=== PATIENT | male | born 1945 | race Caucasian/White ===

== ENCOUNTER 2017-05-17 03:33 | Inpatient (IN) | payer OTHER, MEDICARE ==
[~2017-05-17] VITALS: Ht 180.3 cm; Wt 72.4 kg
[2017-05-17] VITALS (16 sets, daily range): BP systolic 140–164; BP diastolic 65–85; PULSE 71–95; RESP 16–22; TEMP 95.9–98.7; O2SAT 83–97
[~2017-05-17 03:33] MED LIST: ASPI81 PO; CAPS0.022 TOPICAL; COUM5TAB PO; DOCU240C PO; GABA300C3 PO; LISI2.5T55 PO; METO200T3 PO; NITR0.4S SL; OMEP20TA OR; OXYC15TA PO; SIMV10 PO; VENTAER INH
[2017-05-17] MEDS ORDERED: SODIUM CHLORIDE 0.9% FLUSH 10 ML FLUSH IVF PRN (03:45)
[2017-05-17] MEDS: RESP: ALBUTEROL 2.5 MG/IPRATROPIUM 0.5 MG NEB (SCH) INH ×2 (03:45→03:46)
--- NOTE | 2017-05-17 03:48 | PD ---
HPI Chief Complaint: shortness of breath Time Seen by Provider: 03:35 Travel History International Travel<30 days: No Contact w/Intl Traveler<30days: No Traveled to known affect area: No History of Present Illness HPI The patient is a 72-year-old male with COPD who smokes 2 packs of cigars daily. He says he quit 2 days ago. He is been short of breath for about a week. He does not have oxygen at home. He says he has a gradual onset bifrontal headache that comes on and off. [facility] Dr[facility] Quan. 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) GERD: Yes Hypertension: Yes Implanted Vascular Access Dvce: Yes (defibillator) Musculoskeletal: Yes (PINCHED SIATIC NERVE- TAKES DAILY PERCOCET FOR) Psychiatric: Yes Myocardial Infarction: Yes Triglycerides - High: Yes Past Surgical History Cardiac Surgery: Yes (DEFIB 03/2011) Coronary Stent: Yes (X 2) Pacemaker: Yes Social History Alcohol Use: No Tobacco Use: Yes (5 CIGARS/DAY) Substance Use: No Allergies-Medications (Allergen,Severity, Reaction): Coded Allergies: No Known Allergies (Verified , 05/17/17) Reported Meds & Prescriptions Reported Meds & Active Scripts Active Reported Suboxone Sublingual Film (Buprenorphine-Naloxone Sublingual Film) 8-2 Mg Film 1.5 Film SL Unique ID number required: Simvastatin 20 Mg Tab 20 Mg PO DAILY Omeprazole 20 Mg Tab 20 Mg PO DAILY Nitroglycerin SL (Nitroglycerin) 0.4 Mg Subl 0.4 Mg SL DIRECTED PRN ONE TABLET UNDER THE TONGUE NEEDED FOR CHEST PAIN, MAY REPEAT EVERY FIVE MINUTES FOR A TOTAL OF 3 DOSES OR CALL 911 IF NO RELIEF Metoprolol Succinate ER 24 HR (Metoprolol Succinate) 200 Mg Tab 200 Mg PO DAILY Lisinopril 5 Mg Tab 5 Mg PO DAILY Aspirin 81 Mg Chew 81 Mg CHEW DAILY Alfuzosin ER 24 HR 10 Mg Tab 10 Mg PO DAILY Proair Hfa 8.5 GM Inh (Albuterol Sulfate) 90 Mcg/Act Aer 1 Puff INH Q4H PRN 108 mcg/actuation Review of Systems Except as stated in HPI: all other systems reviewed are Neg Physical Exam Narrative GENERAL: The patient is alert, oriented 3 and slight respiratory distress. SKIN: Focused skin assessment warm/dry. HEAD: Atraumatic. Normocephalic. EYES: Pupils equal and round. No scleral icterus. No injection or drainage. ENT: No nasal bleeding or discharge. Mucous membranes pink and moist. NECK: Trachea midline. No JVD. CARDIOVASCULAR: Regular rate and rhythm. No murmur appreciated. RESPIRATORY: No accessory muscle use. Scattered rhonchi and wheezes are heard bilaterally. Breath sounds equal bilaterally. GASTROINTESTINAL: Abdomen soft, non-tender, nondistended. Hepatic and splenic margins not palpable. MUSCULOSKELETAL: No obvious deformities. No clubbing. No cyanosis. No edema. NEUROLOGICAL: Awake and alert. No obvious cranial nerve deficits. Motor grossly within normal limits. Normal speech. PSYCHIATRIC: Appropriate mood and affect; insight and judgment normal. Data Data Last Documented VS Vital Signs Date Time Temp Pulse Resp B/P (MAP) Pulse Ox O2 Delivery O2 Flow Rate FiO2 05/17/17 04:43 75 20 156/83 (107) 91 Nasal Cannula 2.00 05/17/17 03:47 98.1 Orders Orders Complete Blood Count With Diff (05/17/17 03:35) Basic Metabolic Panel (Bmp) (05/17/17 03:35) Iv Access Insert/Monitor (05/17/17 03:35) Electrocardiogram (05/17/17 03:35) Ecg Monitoring (05/17/17 03:35) Oximetry (05/17/17 03:35) Oxygen Administration (05/17/17 03:35) Chest, Pa & Lat (05/17/17 03:35) Sodium Chloride 0.9% Flush (Ns Flush) (05/17/17 03:45) Albuterol-Ipratropium Neb (Duoneb Neb) (05/17/17 03:45) Arterial Blood Gas (Abg) (05/17/17 ) B-Type Natriuretic Peptide (05/17/17 03:39) Levofloxacin 500 Mg Premix Inj (Levaquin (05/17/17 05:15) Methylprednisolone So Succ Inj (Solumedr (05/17/17 06:00) Albuterol-Ipratropium Neb (Duoneb Neb) (05/17/17 08:00) Albuterol-Ipratropium Neb (Duoneb Neb) (05/17/17 05:30) Budeson-Formot 160-4.5 Mg Inh (Symbicort (05/17/17 09:00) Guaifenesin Er (Mucinex Er) (05/17/17 09:00) Admit To Inpatient (05/17/17 ) Vital Signs (Adult) Q4H (05/17/17 05:23) Activity Oob Ad Ramya (05/17/17 05:23) Shuttle Preparation Supervisor / Telemetry .CONTINUOUS (05/17/17 05:23) Intake + Output PRISCILLA.QSHIFT (05/17/17 05:23) Diet Regular Basic (05/17/17 Breakfast) Sodium Chloride 0.9% Flush (Ns Flush) (05/17/17 05:30) Sodium Chloride 0.9% Flush (Ns Flush) (05/17/17 09:00) Ondansetron Inj (Zofran Inj) (05/17/17 05:30) Comprehensive Metabolic Panel (05/18/17 06:00) Complete Blood Count With Diff (05/18/17 06:00) Heparin Inj (Heparin Inj) (05/17/17 09:00) Acetaminophen (Tylenol) (05/17/17 05:30) Acetamin-Hydrocod 325-5 Mg ([place] 5-325 (05/17/17 05:30) Acetamin-Hydrocod 325-10 Mg ([place] 10-32 (05/17/17 05:30) Docusate Sodium-Senna (Christine-Colace) (05/17/17 09:00) Magnesium Hydroxide Liq (Milk Of Magnesi (05/17/17 05:30) Sennosides (Senokot) (05/17/17 05:30) Bisacodyl Supp (Dulcolax Supp) (05/17/17 05:30) Lactulose Liq (Lactulose Liq) (05/17/17 05:30) Inpatient Certification (05/17/17 ) Aspirin Chew (Aspirin Chew) (05/17/17 09:00) (Nf) Omeprazole (05/17/17 09:00) Pravastatin (Pravachol) (05/17/17 09:00) Admit Order (Ed Use Only) (05/17/17 05:29) Levofloxacin 750 Mg Premix Inj (Levaquin (05/18/17 05:00) Labs Laboratory Tests Test 05/17/17 03:46 05/17/17 03:49 White Blood Count 7.5 TH/MM3 Red Blood Count 4.65 MIL/MM3 Hemoglobin 14.8 GM/DL Hematocrit 46.3 % Mean Corpuscular Volume 99.6 FL Mean Corpuscular Hemoglobin 31.9 PG Mean Corpuscular Hemoglobin Concent 32.0 % Red Cell Distribution Width 12.6 % Platelet Count 130 TH/MM3 Mean Platelet Volume 9.4 FL Neutrophils (%) (Auto) 57.4 % Lymphocytes (%) (Auto) 20.9 % Monocytes (%) (Auto) 11.4 % Eosinophils (%) (Auto) 9.8 % Basophils (%) (Auto) 0.5 % Neutrophils # (Auto) 4.3 TH/MM3 Lymphocytes # (Auto) 1.6 TH/MM3 Monocytes # (Auto) 0.9 TH/MM3 Eosinophils # (Auto) 0.7 TH/MM3 Basophils # (Auto) 0.0 TH/MM3 CBC Comment DIFF FINAL Differential Comment Blood Urea Nitrogen 8 MG/DL Creatinine 0.60 MG/DL Random Glucose 83 MG/DL Calcium Level 9.0 MG/DL Sodium Level 135 MEQ/L Potassium Level 4.3 MEQ/L Chloride Level 95 MEQ/L Carbon Dioxide Level 34.9 MEQ/L Anion Gap 5 MEQ/L Estimat Glomerular Filtration Rate 133 ML/MIN B-Type Natriuretic Peptide 111 PG/ML Blood Gas Puncture Site LT RADIAL Blood Gas Patient Temperature 98.6 Blood Gas HCO3 32 mmol/L Blood Gas Base Excess 6.9 mmol/L Blood Gas Oxygen Saturation 76 % Arterial Blood pH 7.37 Arterial Blood Partial Pressure CO2 57 mmHG Arterial Blood Partial Pressure O2 48 mmHG Arterial Blood Oxygen Content 16.1 Vol % Arterial Blood Carboxyhemoglobin 3.1 % Arterial Blood Methemoglobin 1.2 % Blood Gas Hemoglobin 15.1 G/DL Oxygen Delivery Device RA Blood Gas Inspired Oxygen 21 % MDM Medical Decision Making Medical Screen Exam Complete: Yes Emergency Medical Condition: Yes Medical Record Reviewed: Yes Interpretation(s) The basic metabolic profile shows a sodium of 135, bicarbonate of 35 but is otherwise unremarkable. The BNP is 111. The CBC is normal except for platelet count of 130,000. The blood gases after 3-4 albuterol treatments in the ambulance show pH 7.37, CO2 57, PO2 48 with O2 sat 76%. The patient is coughing up thick green sputum here after the DuoNeb treatments. The chest x- ray shows hyperinflation which is likely from COPD and no acute cardiopulmonary disease and no evidence for an infiltrate. Differential Diagnosis COPD with acute exacerbation, hypoxemia, bronchitis, pneumonia, electrolyte disorder, hypercarbia Narrative Course The patient has COPD with acute exacerbation and hypoxemia. He also has hypercarbia. He is coughing up thick green sputum after the DuoNeb treatments and this has improved his oxygenation somewhat. On 2 L nasal cannula patient has O2 saturations of 91%. He does not have oxygen available to him at home. At this time, it appears that he will probably need it. Impression: COPD with acute exacerbation, hypoxemia, hypercarbia Physician Communication Physician Communication I discussed the patient with Dr. Lopez, the patient will be admitted to her here at [place]. Diagnosis Primary Impression: COPD with acute exacerbation Additional Impressions: Hypoxemia Hypercarbia Admitting Information Admitting Physician Requests: Admit Jc Selby MD May 17, 2017 03:48
[2017-05-17 04:01] LABS: AUTOMATED NEUTROPHIL # 4.3 TH/MM3 (1.8-7.7); BASOPHIL % 0.5 % (0.0-2.0); EOSINOPHIL # 0.7 TH/MM3 (0-0.4); EOSINOPHIL % 9.8 % (0.0-4.0); HEMATOCRIT 46.3 % (39.0-51.0); HEMOGLOBIN 14.8 GM/DL (13.0-17.0); LYMPH % 20.9 % (9.0-44.0); LYMPHOCYTE # 1.6 TH/MM3 (1.0-4.8); MEAN CELL VOLUME 99.6 FL (80.0-100.0); MEAN CORPUSCULAR HEMOGLOBIN 31.9 PG (27.0-34.0); MEAN PLATELET VOLUME 9.4 FL (7.0-11.0); MONO % 11.4 % (0.0-8.0); MONOCYTE # 0.9 TH/MM3 (0-0.9); NEUT % 57.4 % (16.0-70.0); PLATELET COUNT 130 TH/MM3 (150-450); RED BLOOD COUNT 4.65 MIL/MM3 (4.50-5.90); RED CELL DISTRIBUTION WIDTH 12.6 % (11.6-17.2); WHITE BLOOD COUNT 7.5 TH/MM3 (4.0-11.0)
[2017-05-17] MEDS ORDERED: METO200T3 PO (04:01)
[2017-05-17] MEDS ORDERED: OMEP20TA PO (04:01)
[2017-05-17] MEDS ORDERED: ALBUAER3 INH (04:01)
[2017-05-17] MEDS ORDERED: SIMV20TA PO (04:01)
[2017-05-17] MEDS ORDERED: ALFU10TA2 PO (04:01)
[2017-05-17] MEDS ORDERED: LISI-519 PO (04:01)
[2017-05-17] MEDS ORDERED: ASPI81CH CHEW (04:01)
[2017-05-17] MEDS ORDERED: SUBO8MIS SL (04:01)
[2017-05-17] MEDS ORDERED: NITR1SUB3 SL (04:01)
[2017-05-17 04:16] LABS: BICARBONATE 34.9 MEQ/L (21.0-32.0)
[2017-05-17 04:19] LABS: CREATININE 0.6 MG/DL (0.60-1.30)
[2017-05-17] MEDS ORDERED: LEVOFLOXACIN 500 MG PREMIX INJ 100 ML IV ONE (05:15)
[2017-05-17] MEDS ORDERED: ACETAMINOPHEN/HYDROcodone 325 MG/5 MG TAB PO PRN (05:30)
[2017-05-17] MEDS ORDERED: MAGNESIUM HYDROXIDE SUSP 30 ML CUP PO PRN (05:30)
[2017-05-17] MEDS ORDERED: SENNOSIDES 8.6 MG TAB PO PRN (05:30)
[2017-05-17] MEDS ORDERED: SODIUM CHLORIDE 0.9% FLUSH 10 ML FLUSH IV FLUSH PRN (05:30)
[2017-05-17] MEDS ORDERED: ONDANSETRON HCL 4 MG/2 ML VIAL IVP PRN (05:30)
[2017-05-17] MEDS ORDERED: LACTULOSE SYRUP 20 GM/30 ML CUP PO PRN (05:30)
[2017-05-17] MEDS ORDERED: ACETAMINOPHEN/HYDROcodone 325 MG/10 MG TAB PO PRN (05:30)
[2017-05-17] MEDS ORDERED: ACETAMINOPHEN 325 MG TAB PO PRN (05:30)
[2017-05-17] MEDS ORDERED: BISACODYL 10 MG SUPP RECTAL PRN (05:30)
[2017-05-17] MEDS: methylPREDNISolone SOD SUCC 40 MG/1 ML VIAL IV PUSH SCH ×3 (06:01→17:54)
--- NOTE | 2017-05-17 06:14 | RADRPT ---
EXAM DATE/TIME: 05/17/2017 03:51 [facility] COMPARISON: No previous studies available for comparison. INDICATIONS : Shortness of breath. MEDICAL HISTORY : Chronic obstructive pulmonary disease. Coronary artery disease. SURGICAL HISTORY : Pacemaker. Coronary artery stent. ENCOUNTER: Initial ACUITY: 1 week PAIN SCORE: 0/10 LOCATION: Bilateral chest FINDINGS: PA and lateral views of the chest demonstrates hyperinflation which can be seen with CO PD. No infiltrates are seen. Left-sided pacemaker/defibrillator with 2 intact leads. Heart is normal in size. The mediastinal contours are unremarkable. Osseous structures are intact. CONCLUSION: Hyperinflation which can be seen with COPD. No acute cardiopulmonary disease an d no evidence for an infiltrate. Santhosh Seals MD on May 17, 2017 at 6:12 Board Certified Radiologist. This report was verified electronically.
[2017-05-17] MEDS: RESP: ALBUTEROL 2.5 MG/IPRATROPIUM 0.5 MG NEB (SCH) NEB ×4 (07:51→19:34)
[2017-05-17] MEDS: DOCUSATE SODIUM 50 MG/SENNA 8.6 MG TAB PO SCH ×2 (08:33→21:33)
[2017-05-17] MEDS: PRAVASTATIN SOD 40 MG TAB PO SCH (08:33)
[2017-05-17] MEDS: guaiFENesin E.R. 600 MG TAB PO SCH ×4 (08:33→21:33)
[2017-05-17] MEDS: ASPIRIN 81 MG CHEW TAB CHEW SCH (08:34)
[2017-05-17] MEDS: BUDESONIDE-FORMOTEROL 160/4.5 MCG INHALER INH SCH ×2 (08:34→21:29)
[2017-05-17] MEDS: SODIUM CHLORIDE 0.9% FLUSH 10 ML FLUSH IV FLUSH SCH ×2 (08:34→21:30)
[2017-05-17] MEDS ORDERED: NON-FORMULARY DRUG (Omeprazole 20 MG) PO SCH (09:00)
[2017-05-17] MEDS ORDERED: HEPARIN SODIUM - SQ 10,000 UNITS/ML VIAL SQ SCH (09:00)
--- NOTE | 2017-05-17 10:28 | EKG ---
Date Performed: 05/17/2017 Time Performed: 04:08:36 PTAGE: 72 years EKG: ELECTRONIC ATRIAL PACEMAKER ABNORMAL RHYTHM ECG Compared to prior tracing no significant ch jonelle PREVIOUS TRACING : 04/19/2011 08.49 DOCTOR: Freddy Johnson Interpretating Date/Time 05/17/2017 10:26:02
[2017-05-17] MEDS: PANTOPRAZOLE SOD 20 MG DELAYED RELEASE TAB PO SCH (10:30)
[2017-05-17] MEDS ORDERED: BUPRENORPHINE/NALOXONE 8 MG/2 MG SUBLINGUAL TAB SL SCH (11:15)
[2017-05-17] MEDS ORDERED: NITROGLYCERIN 0.4 MG SL 25 TABS/BTL SL PRN (11:15)
--- NOTE | 2017-05-17 12:07 | HHI.HP ---
[facility] Service [facility] ([place], [place])ists Primary Care Physician [facility] Admission Diagnosis COPD with acute exacerbation, hypoxemia Diagnoses: Chief Complaint: Increased shortness of breath Travel History International Travel<30 Days: No Contact w/Intl Traveler <30 Da: No Traveled to Known Affected Are: No History of Present Illness This patient is a 72-year-old gentleman with COPD and history of tobacco current dependency. He has had increasing shortness of breath over the last week and worse last night. He came to the emergency room complaining that he was "suffocating". Patient was trying metered-dose inhalers and nebulizers at home without much improvement. He has improved since he's come to the hospital. He has required oxygen which she does not have at home. Patient did have nebulizers and IV steroids and these have improved his symptoms as well. He has smoked cigars for over 50 years. Smokes about 10 a day. He has denied any recent travel and no fever. He has been admitted to the hospital for hypercapnic respiratory failure likely due to COPD Review of Systems Constitutional: DENIES: Diaphoretic episodes, Fatigue, Fever, Weight gain, Weight loss, Chills, Dizziness, Change in appetite, Night Sweats Endocrine: DENIES: Heat/cold intolerance, Polydipsia, Polyuria, Polyphagia Eyes: DENIES: Blurred vision, Diplopia, Eye inflammation, Eye pain, Vision loss , Photosensitivity, Double Vision Ears, nose, mouth, throat: DENIES: Tinnitus, Hearing loss, Vertigo, Nasal discharge, Oral lesions, Throat pain, Hoarseness, Ear Pain, Running Nose, Epistaxis, Sinus Pain, Toothache, Odynophagia Respiratory: DENIES: Apneas, Cough, Snoring, Wheezing, Hemoptysis, Sputum production, Shortness of breath Cardiovascular: COMPLAINS OF: Dyspnea on Exertion, Lower Extremity Edema, DENIES: Chest pain, Palpitations, Syncope, PND, Orthopnea, Claudication Gastrointestinal: DENIES: Abdominal pain, Black stools, Bloody stools, Constipation, Diarrhea, Nausea, Vomiting, Difficulty Swallowing, Anorexia Genitourinary: DENIES: Sexual dysfunction, Urinary frequency, Urinary incontinence, Urgency, Hematuria, Dysuria, Nocturia, Penile Discharge, Testicular Pain, Testicular Swelling Integumentary: DENIES: Abnormal pigmentation, Nail changes, Pruritus, Rash Hematologic/lymphatic: DENIES: Bruising, Lymphadenopathy Immunologic/allergic: DENIES: Eczema, Urticaria Neurologic: DENIES: Abnormal gait, Headache, Localized weakness, Paresthesias, Seizures, Speech Problems, Tremor, Poor Balance Psychiatric: DENIES: Anxiety, Confusion, Mood changes, Depression, Hallucinations, Agitation, Suicidal Ideation, Homicidal Ideation, Delusions Except as stated in HPI: all other systems reviewed are Neg Past Family Social History Past Medical History COPD Coronary artery disease Past Surgical History AICD Reported Medications Reviewed in the EMR, Allergies: Coded Allergies: No Known Allergies (Verified , 05/17/17) Active Ordered Medications reviewed in the EMR Family History Mother at 87, father's history is unknown, brother has throat cancer and was also a smoker Social History 6 cigars for 50 years at least 10 a day, alcohol 12 pack a day, lives with his dog Physical Exam Vital Signs Vital Signs Date Time Temp Pulse Resp B/P (MAP) Pulse Ox O2 Delivery O2 Flow Rate FiO2 05/17/17 11:15 Nasal Cannula 4.00 05/17/17 11:05 92 Nasal Cannula 4.00 05/17/17 08:06 91 Nasal Cannula 4.00 05/17/17 08:00 97.4 95 17 164/81 (108) 97 05/17/17 08:00 97.4 80 17 158/73 (101) 91 05/17/17 07:56 86 Nasal Cannula 2.00 05/17/17 06:52 92 Nasal Cannula 2.00 05/17/17 06:42 68 20 150/80 (103) 90 2.00 05/17/17 06:30 95.9 72 17 156/84 (108) 92 05/17/17 04:43 75 20 156/83 (107) 91 Nasal Cannula 2.00 05/17/17 04:02 20 97 Nasal Cannula 3.00 05/17/17 04:02 97 Nasal Cannula 3.00 05/17/17 03:55 94 Nasal Cannula 2.00 05/17/17 03:47 98.1 71 22 164/85 (111) 83 05/17/17 03:47 22 83 Room Air Physical Exam GENERAL: This is a well-nourished, well-developed patient, in no apparent distress. SKIN: Right great toe nail trauma, some onychomycosis. No rashes, ecchymoses or lesions. Cool and dry. HEAD: Atraumatic. Normocephalic. No temporal or scalp tenderness. EYES: Pupils equal round and reactive. Extraocular motions intact. No scleral icterus. No injection or drainage. ENT: Nose without bleeding, purulent drainage or septal hematoma. Throat without erythema, tonsillar hypertrophy or exudate. Uvula midline. Airway patent. NECK: Trachea midline. No JVD or lymphadenopathy. Supple, nontender, no meningeal signs. CARDIOVASCULAR: Regular rate and rhythm without murmurs, gallops, or rubs. RESPIRATORY: Clear to auscultation. Breath sounds equal bilaterally. No wheezes , rales, or rhonchi. GASTROINTESTINAL: Abdomen soft, non-tender, nondistended. No hepato-splenomegaly , or palpable masses. No guarding. MUSCULOSKELETAL: Extremities without clubbing, cyanosis, there is right lower extremity edema. No joint tenderness, effusion, or edema noted. No calf tenderness. Negative Homans sign bilaterally. NEUROLOGICAL: Awake and alert. Cranial nerves II through XII intact. Motor and sensory grossly within normal limits. Five out of 5 muscle strength in all muscle groups. Normal speech. Laboratory Laboratory Tests Test 05/17/17 03:46 05/17/17 03:49 White Blood Count 7.5 Red Blood Count 4.65 Hemoglobin 14.8 Hematocrit 46.3 Mean Corpuscular Volume 99.6 Mean Corpuscular Hemoglobin 31.9 Mean Corpuscular Hemoglobin Concent 32.0 Red Cell Distribution Width 12.6 Platelet Count 130 Mean Platelet Volume 9.4 Neutrophils (%) (Auto) 57.4 Lymphocytes (%) (Auto) 20.9 Monocytes (%) (Auto) 11.4 Eosinophils (%) (Auto) 9.8 Basophils (%) (Auto) 0.5 Neutrophils # (Auto) 4.3 Lymphocytes # (Auto) 1.6 Monocytes # (Auto) 0.9 Eosinophils # (Auto) 0.7 Basophils # (Auto) 0.0 CBC Comment DIFF FINAL Differential Comment Blood Urea Nitrogen 8 Creatinine 0.60 Random Glucose 83 Calcium Level 9.0 Sodium Level 135 Potassium Level 4.3 Chloride Level 95 Carbon Dioxide Level 34.9 Anion Gap 5 Estimat Glomerular Filtration Rate 133 B-Type Natriuretic Peptide 111 Blood Gas Puncture Site LT RADIAL Blood Gas Patient Temperature 98.6 Blood Gas HCO3 32 Blood Gas Base Excess 6.9 Blood Gas Oxygen Saturation 76 Arterial Blood pH 7.37 Arterial Blood Partial Pressure CO2 57 Arterial Blood Partial Pressure O2 48 Arterial Blood Oxygen Content 16.1 Arterial Blood Carboxyhemoglobin 3.1 Arterial Blood Methemoglobin 1.2 Blood Gas Hemoglobin 15.1 Oxygen Delivery Device RA Blood Gas Inspired Oxygen 21 Result Diagram: 05/17/1734505/17/17345 Imaging Last Impressions Chest X-Ray 05/17/17334 Signed Impressions: Service Date/Time: Wednesday, May 17, 2017 03:51 - CONCLUSION: Hyperinflation which can be seen with COPD. No acute cardiopulmonary disease and no evidence for an infiltrate. MD Castillo Novoa VTE Risk Assessment Castillo VTE Risk Assessment: Mod/High Risk (score >= 2) Caprini Risk Assessment Model Point Value = 1 Point Value = 2 Point Value = 3 Point Value = 5 Age 41-60 Minor surgery BMI > 25 kg/m2 Swollen legs Varicose veins or History of unexplained or recurrent spontaneous Oral contraceptives or hormone replacement Sepsis (< 1 month) Serious lung disease, including pneumonia (< 1 month) Abnormal pulmonary function Acute myocardial infarction Congestive heart failure (< 1 month) History of inflammatory bowel disease Medical patient at bed rest Age 61-74 Arthroscopic surgery Major open surgery (> 45 min) Laparoscopic surgery (> 45 min) Malignancy Confined to bed (> 72 hours) Immobilizing plaster cast Central venous access Age >= 75 History of VTE Family history of VTE Factor V Leiden Prothrombin [id number] Lupus anticoagulant Anticardiolipin antibodies Elevated serum homocysteine Heparin-induced thrombocytopenia Other congenital or acquired thrombophilia Stroke (< 1 month) Elective arthroplasty Hip, pelvis, or leg fracture Acute spinal cord injury (< 1 month) Prophylaxis Regimen Total Risk Factor Score Risk Level Prophylaxis Regimen 0-1 Low Early ambulation 2 Moderate Order ONE of the following: *Sequential Compression Device (SCD) *Heparin 5000 units SQ BID 3-4 Higher Order ONE of the following medications: *Heparin 5000 units SQ TID *Enoxaparin/Lovenox 40 mg SQ daily (WT < 150 kg, CrCl > 30 mL/min) *Enoxaparin/Lovenox 30 mg SQ daily (WT < 150 kg, CrCl > 10-29 mL/min) *Enoxaparin/Lovenox 30 mg SQ BID (WT < 150 kg, CrCl > 30 mL/min) AND/OR *Sequential Compression Device (SCD) 5 or more Highest Order ONE of the following medications: *Heparin 5000 units SQ TID (Preferred with Epidurals) *Enoxaparin/Lovenox 40 mg SQ daily (WT < 150 kg, CrCl > 30 mL/min) *Enoxaparin/Lovenox 30 mg SQ daily (WT < 150 kg, CrCl > 10-29 mL/min) *Enoxaparin/Lovenox 30 mg SQ BID (WT < 150 kg, CrCl > 30 mL/min) AND *Sequential Compression Device (SCD) Assessment and Plan Problem List: (1) COPD with acute exacerbation ICD Code: J44.1 - Chronic obstructive pulmonary disease with (acute) exacerbation Status: Acute Plan: Continue bronchodilators IV steroids Oxygen as needed Plan consult pending, patient may need bone marrow function testing We'll check an echocardiogram given patient's history of cardiomyopathy and increasing shortness of breath ?PA pressure (2) CAD (coronary artery disease) ICD Code: I25.10 - Atherosclerotic heart disease of [place] coronary artery without angina pectoris Plan: Continue beta yunier and PERLA inhibitor (3) Edema ICD Code: R60.9 - Edema, unspecified Plan: r/o dvt Code Status full code Physician Certification 2 Midnight Certification Type: Admission for Inpatient Services Order for Inpatient Services The services are ordered in accordance with Medicare regulations or non- Medicare payer requirements, as applicable. In the case of services not specified as inpatient-only, they are appropriately provided as inpatient services in accordance with the 2-midnight benchmark. Estimated LOS (days): 3 3 days is the estimated time the patient will need to remain in the hospital, assuming treatment plan goals are met and no additional complications. Post-Hospital Plan: Arabella Pugh MD May 17, 2017 12:07
[2017-05-17] MEDS: METOPROLOL SUCCINATE 50 MG EXTENDED RELEASE TAB PO SCH (12:36)
[2017-05-17] MEDS: TAMSULOSIN HCL 0.4 MG CAP PO SCH (12:36)
[2017-05-17] MEDS: LISINOPRIL 5 MG TAB PO SCH (12:36)
--- NOTE | 2017-05-17 14:43 | RADRPT ---
EXAM DATE/TIME: 05/17/2017 14:08 [facility] COMPARISON: No previous studies available for comparison. INDICATIONS : Right leg swelling. MEDICAL HISTORY : Myocardial infarction. Hypercholesterolemia. Chronic obstructive pulmonary disease. CAD. Hyperlipi demia. Hypertension. Emphysema. GERD. BPH. Arthritis. PTSD. Measles. SURGICAL HISTORY : Coronary artery stent. Pacemaker. Cardiac cath. ENCOUNTER: Initial ACUITY: 2 months PAIN SCORE: 5/10 LOCATION: Right leg. TECHNIQUE: Venous ultrasound of the leg was performed from the inguinal ligament to the proximal calf. Real-telma e, color Doppler and spectral tracing, compression and augmentation techniques were used. FINDINGS: There is normal compressibility of the deep venous system from the inguinal region to the proximal ca lf. No echogenic clot is seen in the lumen of the common femoral, femoral, popliteal, and posterior tibial veins. There is a normal response of the venous system to proximal and distal augmentation an d respiration. CONCLUSION: Negative exam. No sonographic or Doppler findings of deep venous thrombosis. William Sampson MD on May 17, 2017 at 14:41 Board Certified Radiologist. This report was verified electronically.
[2017-05-17] MEDS: HEPARIN SODIUM - SQ 10,000 UNITS/ML VIAL SQ SCH (17:54)
[2017-05-17] MEDS ORDERED: DOXYCYCLINE HYCLATE 100 MG TAB PO SCH (21:00)
[2017-05-17] MEDS ORDERED: [UNRECOGNIZED DRUG - OTHER] SL PRN (21:30)
[2017-05-18] VITALS (27 sets, daily range): BP systolic 127–169; BP diastolic 67–82; PULSE 68–88; RESP 12–43; TEMP 96.6–99.2; O2SAT 81–96
[2017-05-18] MEDS: methylPREDNISolone SOD SUCC 40 MG/1 ML VIAL IV PUSH SCH ×2 (00:41→05:17)
[2017-05-18] MEDS: HEPARIN SODIUM - SQ 10,000 UNITS/ML VIAL SQ SCH ×3 (00:42→17:21)
[2017-05-18] MEDS: RESP: ALBUTEROL 2.5 MG/IPRATROPIUM 0.5 MG NEB (PRN) NEB ×2 (04:31→12:42)
[2017-05-18] MEDS: LEVOFLOXACIN 750 MG PREMIX INJ 150 ML IV SCH (05:17)
[2017-05-18] MEDS: [UNRECOGNIZED DRUG - OTHER] SL SCH ×3 (05:18→18:00)
[2017-05-18 06:41] LABS: AUTOMATED NEUTROPHIL # 11.3 TH/MM3 (1.8-7.7); EOSINOPHIL % 0.1 % (0.0-4.0); HEMATOCRIT 44.3 % (39.0-51.0); HEMOGLOBIN 14.9 GM/DL (13.0-17.0); LYMPHOCYTE # 0.8 TH/MM3 (1.0-4.8); MEAN CELL VOLUME 97.9 FL (80.0-100.0); MEAN CORPUSCULAR HEMOGLOBIN 32.8 PG (27.0-34.0); MEAN CORPUSCULAR HGB CONC 33.5 % (32.0-36.0); MEAN PLATELET VOLUME 10.7 FL (7.0-11.0); MONO % 5.1 % (0.0-8.0); MONOCYTE # 0.7 TH/MM3 (0-0.9); NEUT % 88.8 % (16.0-70.0); PLATELET COUNT 128 TH/MM3 (150-450); RED BLOOD COUNT 4.53 MIL/MM3 (4.50-5.90); RED CELL DISTRIBUTION WIDTH 12.1 % (11.6-17.2); WHITE BLOOD COUNT 12.8 TH/MM3 (4.0-11.0)
[2017-05-18 06:48] LABS: CHLORIDE 99 MEQ/L (98-107); SODIUM (NA) 136 MEQ/L (136-145)
[2017-05-18 06:53] LABS: ALBUMIN 3.5 GM/DL (3.4-5.0); CALCIUM 8.9 MG/DL (8.5-10.1); GLUCOSE,RANDOM 142 MG/DL (74-106)
[2017-05-18 06:54] LABS: BICARBONATE 33.8 MEQ/L (21.0-32.0); BLOOD UREA NITROGEN 9 MG/DL (7-18)
[2017-05-18 06:56] LABS: ALT (GPT) 26 U/L (12-78)
[2017-05-18 06:57] LABS: AST (GOT) 14 U/L (15-37); CREATININE 0.58 MG/DL (0.60-1.30); GLOMERULAR FILTRATION RATE 138 ML/MIN (>89)
[2017-05-18 06:58] LABS: TOTAL BILIRUBIN ADULT 0.8 MG/DL (0.2-1.0); TOTAL PROTEIN 6.4 GM/DL (6.4-8.2)
[2017-05-18 06:59] LABS: ALKALINE PHOSPHATASE 83 U/L (45-117)
[2017-05-18] MEDS: RESP: ALBUTEROL 2.5 MG/IPRATROPIUM 0.5 MG NEB (SCH) NEB ×4 (07:54→19:33)
--- NOTE | 2017-05-18 08:02 | MB ---
cc: SIL[facility] LEON DATE OF CONSULTATION 05/17/2017 CONSULTATION 05/17/[address] Arabella Rust REASON FOR CONSULTATION COPD exacerbation. HISTORY OF PRESENT ILLNESS Mr. Hammond is a pleasant 72-year-old male with history of longstanding COPD, history of hypertension, coronary artery disease and pacemaker placement. He has a long history of smoking and continues to smoke 5-10 cigars and drinks 12 beers every other day. The patient came to the hospital with a one-week history of worsening of his shortness of breath. He has cough, tightness in the chest, wheezing, sputum production, did not have fever or chills. No night sweats. Because of worsening of his symptoms, he came to the hospital. He had a workup done and his chest x-ray shows hyperinflation in the lungs. Ultrasound of the leg shows no DVT. His blood shows pH 7.37, pCO2 57, pO2 48, bicarb 32 on room air. His WBC count is 7.5, hemoglobin 14.8, hematocrit 46.3, MCV 99, platelet count 130. Sodium 135, potassium 4.3, chloride 95, CO2 35, BUN 8, creatinine 0.60. PAST MEDICAL HISTORY Significant for history of - 1. COPD. 2. Coronary disease status post stent placement. 3. History of pacemaker placement. 4. History of hypertension. 5. History of chronic pain. He was seeing a pain specialist. He was taken off from oxycodone, now he takes cepaxam. MEDICATIONS He is currently taking - 1. Levofloxacin 750 mg a day. 2. Docusate 100 mg twice a day. 3. Heparin 5000 q.12 hours. 4. Flomax 0.4 mg a day. 5. Metoprolol 200 mg a day. 6. Lisinopril 5 mg a day. 7. Nitroglycerin 0.4 mg. 8. Protonix 40 mg a day. 9. Symbicort 160/4.5 two puffs twice a day. 10. Solu-Medrol 40 mg q. 6 hours. 11. Albuterol/Atrovent nebulizer treatment. ALLERGIES No known drug allergies. SOCIAL HISTORY He is for more than 20 years, lives with his dog. He worked as a welder gas tungsten arc. He has a history of smoking for 50 years and now he smokes 5-10 cigars and drinks 12 beers every other day. History of oxycodone use in the past. FAMILY HISTORY Has three children. One son committed suicide. REVIEW OF SYSTEMS Normally he is up, around and active. Has mild shortness of breath on exertion. No malignancy. No DVT or pulmonary embolism. No seizure, stroke or epilepsy. PHYSICAL EXAMINATION GENERAL: A well-built, well-nourished male, mildly short of breath. VITAL SIGNS: Blood pressure 140/75, heart rate 75, respirations 18. Temperature 97.6. HEENT EXAMINATION: Pupils are equal and react to light. Oral mucosa and nasal mucosa normal. NECK: Supple. JVP not raised. CHEST: Bilateral expiratory rhonchi. CV: S1 and S2 normal. ABDOMEN: Benign. EXTREMITIES: No edema. IMPRESSION 1. COPD exacerbation. 2. Component of respiratory acidosis and hypoxia. 3. Bronchitis. 4. Nicotine use. 5. Alcohol use. 6. History of coronary artery disease, status post stent placement. 7. Pacemaker placement. PLAN 1. We will give him IV Solu-Medrol aerosol treatment. 2. Albuterol/Atrovent. 3. Continue antibiotic. 4. Symbicort twice a day. 5. Supplement his oxygen. 6. Advised him to quit smoking and decrease his alcohol intake. 7. I will check his pulmonary function study when he gets better. 8. We will also evaluate him for need for home oxygen therapy. Further treatment will depend on his course in the hospital. Thank you Dr. Arabella Rust for this consultation. MD YOLA Sam/JOHNNIE /7:30 PM /7:42 AM
[2017-05-18] MEDS ORDERED: [UNRECOGNIZED DRUG - OTHER] SL SCH ×2 (09:00)
[2017-05-18] MEDS: guaiFENesin E.R. 600 MG TAB PO SCH ×3 (09:00→21:23)
--- NOTE | 2017-05-18 09:45 | RADRPT ---
EXAM DATE/TIME: 05/18/2017 09:10 [place] COMPARISON: CHEST PA & LAT, May 17, 2017, 3:51. INDICATIONS : Dyspnea. MEDICAL HISTORY : Myocardial infarction. Hypercholesterolemia. Chronic obstructive pulmonary disease. CAD. Hyperlipidem ia. Hypertension. Emphysema. GERD. BPH. Arthritis. PTSD. Measles. SURGICAL HISTORY : Coronary artery stent. Pacemaker. Cardiac cath. ENCOUNTER: Subsequent ACUITY: 2 days PAIN SCORE: 0/10 LOCATION: chest FINDINGS: A single view of the chest demonstrates the lungs to be symmetrically aerated without evidence of mas s, infiltrate or effusion. There is a minimal prominence of the interstitial markings throughout bot h lungs, stable. The cardiomediastinal contours are unremarkable. Osseous structures are intact. Ca rdiac pacer leads unchanged. CONCLUSION: No infiltrates seen. Joesph Melo MD on May 18, 2017 at 9:42 Board Certified Radiologist. This report was verified electronically.
[2017-05-18] MEDS ORDERED: INFLUENZA VIRUS VACCINE (QUADRIVALENT) 0.5 ML SYR IM ONE (10:00)
[2017-05-18] MEDS ORDERED: PNEUMOCOCCAL POLYVALENT INJ 25 MCG/0.5 ML SYR IM ONE (10:00)
[2017-05-18] MEDS: BUDESONIDE-FORMOTEROL 160/4.5 MCG INHALER INH SCH ×2 (10:42→21:22)
[2017-05-18] MEDS: PANTOPRAZOLE SOD 20 MG DELAYED RELEASE TAB PO SCH (10:45)
[2017-05-18] MEDS: METOPROLOL SUCCINATE 50 MG EXTENDED RELEASE TAB PO SCH (10:45)
[2017-05-18] MEDS: ASPIRIN 81 MG CHEW TAB CHEW SCH (10:45)
[2017-05-18] MEDS: PRAVASTATIN SOD 40 MG TAB PO SCH (10:46)
[2017-05-18] MEDS: DOCUSATE SODIUM 50 MG/SENNA 8.6 MG TAB PO SCH ×2 (10:46→21:23)
[2017-05-18] MEDS: LISINOPRIL 5 MG TAB PO SCH (10:46)
[2017-05-18] MEDS: SODIUM CHLORIDE 0.9% FLUSH 10 ML FLUSH IV FLUSH SCH ×2 (10:46→21:24)
[2017-05-18] MEDS: TAMSULOSIN HCL 0.4 MG CAP PO SCH (10:46)
[2017-05-18 11:06] LABS: TROPONIN I LESS THAN 0.02 NG/ML (0.02-0.05)
--- NOTE | 2017-05-18 11:55 | ECHRPT ---
Indication: Shortness of breath CONCLUSIONS The left ventricular systolic function is mildly reduced with an estimated ejection fraction in the range of 45- 50%. Normal left ventricular size. Wall thickness is normal. No regional wall motion abnormalities are present. Aortic valve sclerosis is present. There is trace tricuspid valve regurgitation. The estimated pulmonary arterial pressure is 33 mmHg. The pulmonary valve is not well visualized. The left ventricular systolic function is mildly reduced with an estimated ejection fraction in the range of 45- 50%. Normal left ventricular size. Wall thickness is normal. No regional wall motion abnormalities are present. globular mass seen attatched to posterolateral wall of right atrium @ 1x2 cm, ddx myxoma, thrombus, vegetation, artifact Aortic valve sclerosis is present. There is trace tricuspid valve regurgitation. The estimated pulmonary arterial pressure is 33 mmHg. The pulmonary valve is not well visualized. BP: 129 / 74 HR: 92 Rhythm: Sinus MEASUREMENTS (Male / Female) Normal Values Technical Quality:Technically difficult study 2D ECHO LV Diastolic Diameter PLAX 4.6 cm 4.2 - 5.9 / 3.9 - 5.3 cm LV Systolic Diameter PLAX 3.6 cm IVS Diastolic Thickness 1.0 cm 0.6 - 1.0 / 0.6 - 0.9 cm LVPW Diastolic Thickness 1.0 cm 0.6 - 1.0 / 0.6 - 0.9 cm LV Relative Wall Thickness 0.4 RV Internal Dim ED PLAX 2.5 cm LVOT Diameter 2.1 cm LA Systolic Diameter LX 3.5 cm 3.0 - 4.0 / 2.7 - 3.8 cm M-MODE LV Diastolic Diameter MM 5.7 cm 4.2 - 5.9 / 3.9 - 5.3 cm LV Systolic Diameter MM 4.3 cm LV Ejection Fraction MM Teich 49.3 % LV Cardiac Index MM Teich 3756.8 cm/minm IVS Diastolic Thickness MM 1.0 cm 0.6 - 1.0 / 0.6 - 0.9 cm LVPW Diastolic Thickness MM 1.0 cm 0.6 - 1.0 / 0.6 - 0.9 cm LV Relative Wall Thickness MM 0.4 0.24 - 0.42 / 0.22 - 0.42 LV Mass Index MM 117.0 g/m 49 - 115 / 43 - 95 g/m Aortic Root Diameter MM 3.8 cm AV Cusp Separation MM 1.3 cm DOPPLER AV Peak Velocity 178.0 cm/s AV Peak Gradient 12.7 mmHg LVOT Peak Velocity 93.3 cm/s LVOT Peak Gradient 3.5 mmHg AV Area Cont Eq pk 1.8 cm MV Area PHT 6.7 cm Mitral E Point Velocity 59.7 cm/s Mitral A Point Velocity 76.0 cm/s Mitral E to A Ratio 0.8 TR Peak Velocity 240.0 cm/s TR Peak Gradient 23.0 mmHg Right Atrial Pressure 10.0 mmHg Pulmonary Artery Systolic Pressu 33.0 mmHg Right Ventricular Systolic Press 33.0 mmHg PV Peak Velocity 66.5 cm/s PV Peak Gradient 1.8 mmHg FINDINGS LEFT VENTRICLE The left ventricular systolic function is mildly reduced with an estimated ejection fraction in the range of 45- 50%. Normal left ventricular size. Wall thickness is normal. No regional wall motion abnormalities are present. RIGHT VENTRICLE Normal right ventricular size and systolic function. LEFT ATRIUM The left atrial size is normal. RIGHT ATRIUM globular mass seen attatched to posterolateral wall @ 1x2 cm, ddx myxoma, thrombus, vegetation, art ifact ATRIAL SEPTUM Normal atrial septal thickness without atrial level shunting by limited color doppler interrogation. AORTA The aortic root and proximal ascending aorta are normal in size on limited imaging. MITRAL VALVE Structurally normal mitral valve. No mitral valve stenosis or regurgitation. AORTIC VALVE Trileaflet aortic valve. No aortic valve stenosis or regurgitation. Aortic valve sclerosis is present. TRICUSPID VALVE Structurally normal tricuspid valve. There is trace tricuspid valve regurgitation. The estimated pulmonary arterial pressure is 33 mmHg. PULMONARY VALVE The pulmonary valve is not well visualized. VESSELS The inferior vena cava is normal in size. PERICARDIUM No pericardial effusion. Soham Apodaca MD, FACC, FSCAI (Electronically Signed) Final Date:18 May 2017 11:54
[2017-05-18] MEDS: methylPREDNISolone SOD SUCC 125 MG/2 ML VIAL IV SCH ×2 (12:24→18:14)
--- NOTE | 2017-05-18 13:20 | HHI.PR ---
Subjective Remarks The patient said that he will not be smoking anymore cigarettes. He said when he tries to breathe normally his oxygen saturation goes down. He said he recently had some work done in his house and he wonders if any of that could've contributed to his breathing problems. Discussed with nursing. Objective Vitals Vital Signs Date Time Temp Pulse Resp B/P (MAP) Pulse Ox O2 Delivery O2 Flow Rate FiO2 05/18/17 11:00 70 05/18/17 10:00 88 05/18/17 09:00 94 Venturi Mask 50 05/18/17 09:00 78 05/18/17 08:54 74 05/18/17 08:00 97.6 74 17 142/67 (92) 92 05/18/17 07:58 91 Nasal Cannula 6.00 05/18/17 04:50 86 Nasal Cannula 6.00 Humidified 05/18/17 04:41 91 Nasal Cannula 6.00 05/18/17 04:31 86 Nasal Cannula 4.00 05/18/17 04:00 98.1 76 20 129/74 (92) 89 05/18/17 00:00 96.6 70 18 135/73 (93) 93 05/17/17 20:03 71 05/17/17 20:00 98.7 74 20 145/76 (99) 92 05/17/17 20:00 92 Nasal Cannula 4.00 05/17/17 19:35 93 Nasal Cannula 4.00 05/17/17 16:00 97.6 75 18 140/75 (96) 93 05/17/17 15:16 94 Nasal Cannula 4.00 I/O 05/17/17 05/17/17 05/17/17 05/18/17 05/18/17 05/18/17 07:00 15:00 23:00 07:00 15:00 23:00 Intake Total 100 ml 420 ml 760 ml Balance 100 ml 420 ml 760 ml Intake Oral 420 ml 620 ml IV Total 100 ml 140 ml # Voids 2 # Bowel Movements 0 Result Diagram: 05/18/17 0535 05/18/17 0535 Imaging Last Impressions Chest X-Ray 05/18/17 0000 Signed Impressions: Service Date/Time: Thursday, May 18, 2017 09:10 - CONCLUSION: No infiltrates seen. Joesph Melo MD Lower Extremity Ultrasound 05/17/17 0000 Signed Impressions: Service Date/Time: Wednesday, May 17, 2017 14:08 - CONCLUSION: Negative exam. No sonographic or Doppler findings of deep venous thrombosis. William Sampson MD Objective Remarks GENERAL: This is a well-nourished, well-developed patient, in no apparent distress. SKIN: No rashes, ecchymoses or lesions. Cool and dry. HEAD: Atraumatic. Normocephalic. No temporal or scalp tenderness. EYES: Pupils equal round and reactive. Extraocular motions intact. No scleral icterus. No injection or drainage. ENT: Nose without bleeding, purulent drainage or septal hematoma. Throat without erythema, tonsillar hypertrophy or exudate. Uvula midline. Airway patent. NECK: Trachea midline. No JVD or lymphadenopathy. Supple, nontender, no meningeal signs. CARDIOVASCULAR: Regular rate and rhythm without murmurs, gallops, or rubs. RESPIRATORY: Diffuse wheezing. GASTROINTESTINAL: Abdomen soft, non-tender, nondistended. No hepato-splenomegaly , or palpable masses. No guarding. MUSCULOSKELETAL: Extremities without clubbing, cyanosis, there is right lower extremity edema. No joint tenderness, effusion, or edema noted. NEUROLOGICAL: Awake and alert. Cranial nerves II through XII intact. Motor and sensory grossly within normal limits. Five out of 5 muscle strength in all muscle groups. Normal speech. PSYCH: Mood and affect appropriate. Medications and IVs Current Medications Medications (Trade) Dose Ordered Sig/Kimber Route Start Time Stop Time Status Last Admin (Duoneb Neb) 1 ampule Q4HR WHILE AWAKE NEB NEB 05/17/17 08:00 05/18/17 11:03 (Duoneb Neb) 1 ampule Q2HR NEB PRN NEB 05/17/17 05:30 05/18/17 12:42 (Symbicort 160-4.5 Inh) 2 puff Q12HR INH 05/17/17 09:00 05/18/17 10:42 Levofloxacin/ Dextrose 150 ml @ 100 mls/hr Q24H IV 05/18/17 05:00 05/18/17 05:17 (Mucinex Er) 600 mg BID PO 05/17/17 09:00 (NS Flush) 2 ml UNSCH PRN IV FLUSH 05/17/17 05:30 (NS Flush) 2 ml BID IV FLUSH 05/17/17 09:00 05/18/17 10:46 (Zofran Inj) 4 mg Q6H PRN IVP 05/17/17 05:30 (Tylenol) 650 mg Q6H PRN PO 05/17/17 05:30 ([place] 5-325 Mg) 1 tab Q4H PRN PO 05/17/17 05:30 05/17/17 21:34 ([place] 10-325 Mg) 1 tab Q4H PRN PO 05/17/17 05:30 (Christine-Colace) 1 tab BID PO 05/17/17 09:00 05/18/17 10:46 (Milk Of Magnesia Liq) 30 ml Q12H PRN PO 05/17/17 05:30 (Senokot) 17.2 mg Q12H PRN PO 05/17/17 05:30 (Dulcolax Supp) 10 mg DAILY PRN RECTAL 05/17/17 05:30 (Lactulose Liq) 30 ml DAILY PRN PO 05/17/17 05:30 (Aspirin Chew) 81 mg DAILY CHEW 05/17/17 09:00 05/18/17 10:45 (Pravachol) 40 mg DAILY PO 05/17/17 09:00 05/18/17 10:46 (Protonix) 20 mg DAILY PO 05/17/17 10:30 05/18/17 10:45 (Prinivil) 5 mg DAILY PO 05/17/17 11:15 05/18/17 10:46 (Nitrostat Sl) 0.4 mg STAT PRN SL 05/17/17 11:15 (Flomax) 0.4 mg DAILY PO 05/17/17 11:30 05/18/17 10:46 (Toprol Xl) 200 mg DAILY PO 05/17/17 11:30 05/18/17 10:45 (Heparin Inj) 5,000 units Q8H SQ 05/17/17 17:00 05/18/17 10:44 Patient Own Medication PT OWN MED: BUPRENORPHINE-NALOXON... TID@0600,1200,1800 SL 05/18/17 06:00 05/18/17 05:18 (SoluMEDROL INJ) 60 mg Q6HR IV 05/18/17 12:00 05/18/17 12:24 A/P Problem List: (1) COPD with acute exacerbation ICD Code: J44.1 - Chronic obstructive pulmonary disease with (acute) exacerbation Status: Acute (2) CAD (coronary artery disease) ICD Code: I25.10 - Atherosclerotic heart disease of [place] coronary artery without angina pectoris (3) Edema ICD Code: R60.9 - Edema, unspecified Assessment and Plan COPD With acute exacerbation. Pulmonology consult appreciated. - Continue standing and as needed bronchodilators. - IV Solumedrol. - Oxygen as needed. Currently on ventimask. - IS. Encourage ambulation. - continue IV Levaquin. CAD (coronary artery disease) Echo with EF 45-50%. BNP 111. - Continue beta yunier and PERLA inhibitor. Leukocytosis Likely s/t COPD exacerbation. Also on steroids. - monitor as needed. PPx: Maximilian Price DO May 18, 2017 13:20
[2017-05-18] MEDS: GABAPENTIN 300 MG CAP PO SCH ×2 (17:20→18:14)
--- NOTE | 2017-05-18 17:40 | HHI.PR ---
Subjective Remarks 72 YOWM with COPD exac, Bronchitis,Nicotine use Was tr to [facility] Required VM Weaned to NC Cough with small amount of sp no Fever Objective Vital Signs Vital Signs Date Time Temp Pulse Resp B/P (MAP) Pulse Ox O2 Delivery O2 Flow Rate FiO2 05/18/17 17:00 68 12 136/67 (90) 94 05/18/17 16:00 80 05/18/17 16:00 97.7 76 41 127/75 (92) 93 05/18/17 15:00 74 43 143/76 (98) 94 05/18/17 14:00 76 25 151/82 (105) 90 05/18/17 14:00 78 05/18/17 13:00 70 25 133/76 (95) 90 05/18/17 12:00 98.3 70 28 134/71 (92) 91 05/18/17 12:00 70 05/18/17 11:00 70 05/18/17 10:00 88 05/18/17 09:00 94 Venturi Mask 50 05/18/17 09:00 78 05/18/17 08:54 74 05/18/17 08:00 97.6 74 17 142/67 (92) 92 05/18/17 07:58 91 Nasal Cannula 6.00 05/18/17 04:50 86 Nasal Cannula 6.00 Humidified 05/18/17 04:41 91 Nasal Cannula 6.00 05/18/17 04:31 86 Nasal Cannula 4.00 05/18/17 04:00 98.1 76 20 129/74 (92) 89 05/18/17 00:00 96.6 70 18 135/73 (93) 93 05/17/17 20:03 71 05/17/17 20:00 98.7 74 20 145/76 (99) 92 05/17/17 20:00 92 Nasal Cannula 4.00 05/17/17 19:35 93 Nasal Cannula 4.00 I/O 05/17/17 05/17/17 05/17/17 05/18/17 05/18/17 05/18/17 07:00 15:00 23:00 07:00 15:00 23:00 Intake Total 100 ml 420 ml 760 ml Balance 100 ml 420 ml 760 ml Intake Oral 420 ml 620 ml IV Total 100 ml 140 ml # Voids 2 # Bowel Movements 0 Result Diagram: 05/18/1753405/18/17534 Objective Remarks GENERAL:MBMN WM mild sob SKIN: Warm and dry. HEAD: Normocephalic. EYES: No scleral icterus. No injection or drainage. NECK: Supple, trachea midline. No JVD or lymphadenopathy. CARDIOVASCULAR: Regular rate and rhythm without murmurs, gallops, or rubs. RESPIRATORY: Breath sounds equal bilaterally. No accessory muscle use. GASTROINTESTINAL: Abdomen soft, non-tender, nondistended. MUSCULOSKELETAL: No cyanosis, or edema. BACK: Nontender without obvious deformity. No CVA tenderness. A/P Assessment and Plan COPD Exac Bronchitis HTN Nicotine use CAD, s/p stent S/P Pacemaker PLAN: Aerosol nebs Supplement 02 with NC IV Solumedrol cont Levaquin SQ Heparin Smoking cessation. Gregg Lee MD May 18, 2017 17:40
[2017-05-18] MEDS ORDERED: CHLORHEXIDINE GLUCONATE 2 % 1 PACK (2 CLOTHS)(extra cloths) TOPICAL PRN (20:30)
[2017-05-19] VITALS (29 sets, daily range): BP systolic 126–162; BP diastolic 68–89; PULSE 68–84; RESP 10–38; TEMP 97.5–98.8; O2SAT 90–98
[2017-05-19] MEDS: HEPARIN SODIUM - SQ 10,000 UNITS/ML VIAL SQ SCH ×3 (01:11→17:30)
[2017-05-19] MEDS: methylPREDNISolone SOD SUCC 125 MG/2 ML VIAL IV SCH ×3 (01:11→12:22)
[2017-05-19] MEDS ORDERED: CHLORHEXIDINE GLUCONATE 2 % 1 PACK (2 CLOTHS)(taper/protocol) TOPICAL SCH (04:00)
[2017-05-19] MEDS: LEVOFLOXACIN 750 MG PREMIX INJ 150 ML IV SCH (05:02)
[2017-05-19] MEDS: [UNRECOGNIZED DRUG - OTHER] SL SCH ×2 (05:06→12:00)
[2017-05-19] MEDS: RESP: ALBUTEROL 2.5 MG/IPRATROPIUM 0.5 MG NEB (SCH) NEB ×3 (07:22→15:13)
[2017-05-19] MEDS: BUDESONIDE-FORMOTEROL 160/4.5 MCG INHALER INH SCH (09:03)
[2017-05-19] MEDS: METOPROLOL SUCCINATE 50 MG EXTENDED RELEASE TAB PO SCH (09:03)
[2017-05-19] MEDS: SODIUM CHLORIDE 0.9% FLUSH 10 ML FLUSH IV FLUSH SCH (09:04)
[2017-05-19] MEDS: LISINOPRIL 5 MG TAB PO SCH (09:05)
[2017-05-19] MEDS: PANTOPRAZOLE SOD 20 MG DELAYED RELEASE TAB PO SCH (09:05)
[2017-05-19] MEDS: GABAPENTIN 300 MG CAP PO SCH ×3 (09:05→17:30)
[2017-05-19] MEDS: PRAVASTATIN SOD 40 MG TAB PO SCH (09:05)
[2017-05-19] MEDS: TAMSULOSIN HCL 0.4 MG CAP PO SCH (09:05)
[2017-05-19] MEDS: DOCUSATE SODIUM 50 MG/SENNA 8.6 MG TAB PO SCH (09:05)
[2017-05-19] MEDS: ASPIRIN 81 MG CHEW TAB CHEW SCH (09:06)
[2017-05-19] MEDS ORDERED: MAGNESIUM CITRATE SOLN 300 ML BTL PO ONE (13:00)
[2017-05-19] MEDS ORDERED: PRED10PA2 PO (13:17)
[2017-05-19] MEDS ORDERED: LEVA750T9 PO (13:17)
[2017-05-19] MEDS ORDERED: OXYGENDME NAS.CANULA (13:17)
[2017-05-19] MEDS ORDERED: SYMB160A INH (13:17)
--- NOTE | 2017-05-19 13:17 | HHI.DCPOC ---
Discharge Care Plan Diagnosis: (1) COPD with acute exacerbation (2) Hypoxemia (3) Hypercarbia Goals to Promote Your Health * To prevent worsening of your condition and complications * To maintain your health at the optimal level Directions to Meet Your Goals Take your medications as prescribed Follow your dietary instruction Follow activity as directed Keep your appointments as scheduled Take your immunizations and boosters as scheduled If your symptoms worsen call your PCP, if no PCP go to Urgent Care Center or Emergency Room Smoking is Dangerous to Your Health. Avoid second hand smoke Call the 24-hour hour crisis hotline for domestic abuse at Maximilian Abreu DO May 19, 2017 13:17
--- NOTE | 2017-05-19 13:17 | HHI.DCPOC ---
Discharge Care Plan Diagnosis: (1) COPD with acute exacerbation (2) Hypoxemia (3) Hypercarbia Goals to Promote Your Health * To prevent worsening of your condition and complications * To maintain your health at the optimal level Directions to Meet Your Goals Take your medications as prescribed Follow your dietary instruction Follow activity as directed Keep your appointments as scheduled Take your immunizations and boosters as scheduled If your symptoms worsen call your PCP, if no PCP go to Urgent Care Center or Emergency Room Smoking is Dangerous to Your Health. Avoid second hand smoke Call the 24-hour hour crisis hotline for domestic abuse at Maximilian Abreu DO May 19, 2017 13:17
--- NOTE | 2017-05-19 13:17 | HHI.DCPOC ---
Discharge Care Plan Diagnosis: (1) COPD with acute exacerbation (2) Hypoxemia (3) Hypercarbia Goals to Promote Your Health * To prevent worsening of your condition and complications * To maintain your health at the optimal level Directions to Meet Your Goals Take your medications as prescribed Follow your dietary instruction Follow activity as directed Keep your appointments as scheduled Take your immunizations and boosters as scheduled If your symptoms worsen call your PCP, if no PCP go to Urgent Care Center or Emergency Room Smoking is Dangerous to Your Health. Avoid second hand smoke Call the 24-hour hour crisis hotline for domestic abuse at Maximilian Abreu DO May 19, 2017 13:17
--- NOTE | 2017-05-19 13:22 | HHI.PR ---
Subjective Remarks The pt wanted to go home. He said he was breathing well and ambulating without difficulty. He said he's going to try to stop smoking. Discussed with nursing. Objective Vitals Vital Signs Date Time Temp Pulse Resp B/P (MAP) Pulse Ox O2 Delivery O2 Flow Rate FiO2 05/19/17 12:00 72 05/19/17 12:00 72 36 93 05/19/17 10:01 80 21 135/73 (93) 91 05/19/17 10:00 82 05/19/17 09:01 72 29 126/68 (87) 93 05/19/17 08:01 97.5 70 23 136/80 (98) 92 05/19/17 08:00 69 05/19/17 07:31 92 Nasal Cannula 2.00 05/19/17 07:01 70 28 158/83 (108) 97 05/19/17 07:00 Nasal Cannula 2.00 05/19/17 06:04 76 24 155/76 (102) 95 05/19/17 06:00 76 05/19/17 06:00 82 Nasal Cannula 5.00 05/19/17 05:01 68 14 154/79 (104) 92 05/19/17 04:01 97.7 68 11 153/83 (106) 90 05/19/17 04:00 68 05/19/17 03:01 68 10 150/82 (104) 92 05/19/17 02:01 70 11 158/89 (112) 94 05/19/17 02:00 70 05/19/17 01:01 78 21 162/80 (107) 98 05/19/17 01:00 97 Nasal Cannula 2.00 Humidified 05/19/17 00:26 97 Nasal Cannula 4.00 05/19/17 00:01 98.0 68 16 156/85 (108) 95 05/19/17 00:00 97 Nasal Cannula 4.00 05/19/17 00:00 70 05/18/17 23:01 68 18 144/77 (99) 94 05/18/17 22:01 68 20 142/78 (99) 94 05/18/17 22:00 68 05/18/17 22:00 95 Venturi Mask 7.00 40 05/18/17 21:20 90 Venturi Mask 7.00 50 05/18/17 21:01 68 18 127/70 (89) 96 05/18/17 20:45 92 Venturi Mask 50 05/18/17 20:44 81 Nasal Cannula 6.00 05/18/17 20:01 68 30 133/68 (89) 96 05/18/17 20:00 70 05/18/17 20:00 95 Nasal Cannula 6.00 Humidified 05/18/17 19:33 95 Nasal Cannula 6.00 05/18/17 19:01 99.2 86 34 169/81 (110) 91 05/18/17 18:00 78 05/18/17 18:00 78 35 137/70 (92) 94 05/18/17 17:00 68 12 136/67 (90) 94 05/18/17 16:00 80 05/18/17 16:00 97.7 76 41 127/75 (92) 93 05/18/17 15:00 74 43 143/76 (98) 94 05/18/17 14:00 76 25 151/82 (105) 90 05/18/17 14:00 78 I/O 05/18/17 05/18/17 05/18/17 05/19/17 05/19/17 05/19/17 07:00 15:00 23:00 07:00 15:00 23:00 Intake Total 760 ml 480 ml 600 ml Output Total 400 ml 950 ml Balance 760 ml 80 ml -350 ml Intake Oral 620 ml 480 ml 600 ml IV Total 140 ml Output Urine Total 400 ml 950 ml # Voids 2 # Bowel Movements 0 0 Result Diagram: 05/18/17 0535 05/18/17 0535 Imaging Last Impressions Chest X-Ray 05/18/17 0000 Signed Impressions: Service Date/Time: Thursday, May 18, 2017 09:10 - CONCLUSION: No infiltrates seen. Joesph Melo MD Lower Extremity Ultrasound 05/17/17 0000 Signed Impressions: Service Date/Time: Wednesday, May 17, 2017 14:08 - CONCLUSION: Negative exam. No sonographic or Doppler findings of deep venous thrombosis. William Sampson MD Objective Remarks GENERAL: This is a well-nourished, well-developed patient, in no apparent distress. SKIN: No rashes, ecchymoses or lesions. Cool and dry. HEAD: Atraumatic. Normocephalic. No temporal or scalp tenderness. EYES: Pupils equal round and reactive. Extraocular motions intact. No scleral icterus. No injection or drainage. ENT: Nose without bleeding, purulent drainage or septal hematoma. Throat without erythema, tonsillar hypertrophy or exudate. Uvula midline. Airway patent. NECK: Trachea midline. No JVD or lymphadenopathy. Supple, nontender, no meningeal signs. CARDIOVASCULAR: Regular rate and rhythm without murmurs, gallops, or rubs. RESPIRATORY: Diffuse wheezing. GASTROINTESTINAL: Abdomen soft, non-tender, nondistended. No hepato-splenomegaly , or palpable masses. No guarding. MUSCULOSKELETAL: Extremities without clubbing, cyanosis, there is right lower extremity edema. No joint tenderness, effusion, or edema noted. NEUROLOGICAL: Awake and alert. Cranial nerves II through XII intact. Motor and sensory grossly within normal limits. Five out of 5 muscle strength in all muscle groups. Normal speech. PSYCH: Mood and affect appropriate. Medications and IVs Current Medications Medications (Trade) Dose Ordered Sig/Kimber Route Start Time Stop Time Status Last Admin (Duoneb Neb) 1 ampule Q4HR WHILE AWAKE NEB NEB 05/17/17 08:00 05/19/17 11:06 (Duoneb Neb) 1 ampule Q2HR NEB PRN NEB 05/17/17 05:30 05/18/17 12:42 (Symbicort 160-4.5 Inh) 2 puff Q12HR INH 05/17/17 09:00 05/19/17 09:03 Levofloxacin/ Dextrose 150 ml @ 100 mls/hr Q24H IV 05/18/17 05:00 05/19/17 05:02 (NS Flush) 2 ml UNSCH PRN IV FLUSH 05/17/17 05:30 05/19/17 01:11 (NS Flush) 2 ml BID IV FLUSH 05/17/17 09:00 05/19/17 09:04 (Zofran Inj) 4 mg Q6H PRN IVP 05/17/17 05:30 (Tylenol) 650 mg Q6H PRN PO 05/17/17 05:30 ([place] 5-325 Mg) 1 tab Q4H PRN PO 05/17/17 05:30 05/17/17 21:34 ([place] 10-325 Mg) 1 tab Q4H PRN PO 05/17/17 05:30 (Christine-Colace) 1 tab BID PO 05/17/17 09:00 05/19/17 09:05 (Milk Of Magnesia Liq) 30 ml Q12H PRN PO 05/17/17 05:30 05/19/17 01:21 (Senokot) 17.2 mg Q12H PRN PO 05/17/17 05:30 (Lactulose Liq) 30 ml DAILY PRN PO 05/17/17 05:30 05/19/17 05:53 (Aspirin Chew) 81 mg DAILY CHEW 05/17/17 09:00 05/19/17 09:06 (Pravachol) 40 mg DAILY PO 05/17/17 09:00 05/19/17 09:05 (Protonix) 20 mg DAILY PO 05/17/17 10:30 05/19/17 09:05 (Prinivil) 5 mg DAILY PO 05/17/17 11:15 05/19/17 09:05 (Nitrostat Sl) 0.4 mg STAT PRN SL 05/17/17 11:15 (Flomax) 0.4 mg DAILY PO 05/17/17 11:30 05/19/17 09:05 (Toprol Xl) 200 mg DAILY PO 05/17/17 11:30 05/19/17 09:03 (Heparin Inj) 5,000 units Q8H SQ 05/17/17 17:00 05/19/17 09:03 Patient Own Medication PT OWN MED: BUPRENORPHINE-NALOXON... TID@0600,1200,1800 SL 05/18/17 06:00 05/18/17 13:57 (SoluMEDROL INJ) 60 mg Q6HR IV 05/18/17 12:00 05/19/17 12:22 (Neurontin) 300 mg TID PO 05/18/17 15:15 05/19/17 12:22 Miscellaneous Information Patient in critical care unit? Ass... [id number] .XX 05/18/17 20:30 05/18/17 20:30 (Chlorhexidine 2% Cloth) 3 pack DAILY@04 TOPICAL 05/19/17 04:00 05/23/17 04:01 05/18/17 21:33 (Chlorhexidine 2% Cloth) 3 pack UNSCH PRN TOPICAL 05/18/17 20:30 05/23/17 20:27 A/P Problem List: (1) COPD with acute exacerbation ICD Code: J44.1 - Chronic obstructive pulmonary disease with (acute) exacerbation Status: Acute (2) CAD (coronary artery disease) ICD Code: I25.10 - Atherosclerotic heart disease of [place] coronary artery without angina pectoris (3) Edema ICD Code: R60.9 - Edema, unspecified Assessment and Plan COPD With acute exacerbation. Pulmonology consult appreciated. Improving. On 2L NC. - Continue standing and as needed bronchodilators. - IV Solumedrol. Prednisone taper upon discharge. - Oxygen as needed. Walk test requested. - IS. Encourage ambulation. - continue IV Levaquin. Change to PO upon discharge. - follow up with pulmonology as an outpt. CAD (coronary artery disease) Echo with EF 45-50%. BNP 111. - Continue beta yunier and PERLA inhibitor. Leukocytosis Likely s/t COPD exacerbation. Also on steroids. - monitor as needed. PPx: Heparin Discharge Planning It was recommended to keep the pt an additional day for optimization but the pt really wanted to be discharged. The pt is stable at this time and may be discharged pending the results from the oxygen walk test. Home oxygen will be arranged if needed Maximilian Abreu DO May 19, 2017 13:22
--- NOTE | 2017-05-19 13:29 | HHI.DS ---
Discharge Summary Admission Date May 17, 2017 at 05:33 Discharge Date: May 19, 2017 Admitting Diagnosis COPD with acute exacerbation, hypoxemia (1) COPD with acute exacerbation ICD Code: J44.1 - Chronic obstructive pulmonary disease with (acute) exacerbation Diagnosis: Principal Status: Acute (2) CAD (coronary artery disease) ICD Code: I25.10 - Atherosclerotic heart disease of [place] coronary artery without angina pectoris (3) Edema ICD Code: R60.9 - Edema, unspecified Procedures None Brief History - From Admission This patient is a 72-year-old gentleman with COPD and history of tobacco current dependency. He has had increasing shortness of breath over the last week and worse last night. He came to the emergency room complaining that he was "suffocating". Patient was trying metered-dose inhalers and nebulizers at home without much improvement. He has improved since he's come to the hospital. He has required oxygen which she does not have at home. Patient did have nebulizers and IV steroids and these have improved his symptoms as well. He has smoked cigars for over 50 years. Smokes about 10 a day. He has denied any recent travel and no fever. He has been admitted to the hospital for hypercapnic respiratory failure likely due to COPD CBC/BMP: 05/18/17 0535 05/18/17 0535 Significant Findings Laboratory Tests Test 05/17/17 03:46 05/17/17 03:49 05/18/17 05:35 05/18/17 09:03 Platelet Count 130 TH/MM3 (150-450) 128 TH/MM3 (150-450) Monocytes (%) (Auto) 11.4 % (0.0-8.0) Eosinophils (%) (Auto) 9.8 % (0.0-4.0) Eosinophils # (Auto) 0.7 TH/MM3 (0-0.4) Sodium Level 135 MEQ/L (136-145) Chloride Level 95 MEQ/L (98-107) Carbon Dioxide Level 34.9 MEQ/L (21.0-32.0) 33.8 MEQ/L (21.0-32.0) B-Type Natriuretic Peptide 111 PG/ML (0-100) Blood Gas HCO3 32 mmol/L (22-26) 32 mmol/L (22-26) Blood Gas Base Excess 6.9 mmol/L (-2-2) 7.8 mmol/L (-2-2) Blood Gas Oxygen Saturation 76 % (90-100) Arterial Blood pH 7.37 (7.380-7.420) 7.46 (7.380-7.420) Arterial Blood Partial Pressure CO2 57 mmHG (38-42) 46 mmHg (38-42) Arterial Blood Partial Pressure O2 48 mmHG (61-120) White Blood Count 12.8 TH/MM3 (4.0-11.0) Neutrophils (%) (Auto) 88.8 % (16.0-70.0) Lymphocytes (%) (Auto) 6.0 % (9.0-44.0) Neutrophils # (Auto) 11.3 TH/MM3 (1.8-7.7) Lymphocytes # (Auto) 0.8 TH/MM3 (1.0-4.8) Creatinine 0.58 MG/DL (0.60-1.30) Random Glucose 142 MG/DL (74-106) Aspartate Amino Transf (AST/SGOT) 14 U/L (15-37) Anion Gap 3 MEQ/L (5-15) Test 05/18/17 10:33 05/18/17 21:30 Troponin I LESS THAN 0.02 NG/ML Imaging Last Impressions Chest X-Ray 05/18/17 0000 Signed Impressions: Service Date/Time: Thursday, May 18, 2017 09:10 - CONCLUSION: No infiltrates seen. Joesph Melo MD Lower Extremity Ultrasound 05/17/17 0000 Signed Impressions: Service Date/Time: Wednesday, May 17, 2017 14:08 - CONCLUSION: Negative exam. No sonographic or Doppler findings of deep venous thrombosis. William Sampson MD PE at Discharge GENERAL: This is a well-nourished, well-developed patient, in no apparent distress. SKIN: No rashes, ecchymoses or lesions. Cool and dry. HEAD: Atraumatic. Normocephalic. No temporal or scalp tenderness. EYES: Pupils equal round and reactive. Extraocular motions intact. No scleral icterus. No injection or drainage. ENT: Nose without bleeding, purulent drainage or septal hematoma. Throat without erythema, tonsillar hypertrophy or exudate. Uvula midline. Airway patent. NECK: Trachea midline. No JVD or lymphadenopathy. Supple, nontender, no meningeal signs. CARDIOVASCULAR: Regular rate and rhythm without murmurs, gallops, or rubs. RESPIRATORY: Diffuse wheezing. GASTROINTESTINAL: Abdomen soft, non-tender, nondistended. No hepato-splenomegaly , or palpable masses. No guarding. MUSCULOSKELETAL: Extremities without clubbing, cyanosis, there is right lower extremity edema. No joint tenderness, effusion, or edema noted. NEUROLOGICAL: Awake and alert. Cranial nerves II through XII intact. Motor and sensory grossly within normal limits. Five out of 5 muscle strength in all muscle groups. Normal speech. PSYCH: Mood and affect appropriate. Hospital Course COPD The pt was monitored in the ICU. He initially required a Ventimask. Pulmonology was consulted. He was continued on standing and as needed bronchodilators. He was placed on IV Solumedrol. He will complete a prednisone taper upon discharge. He received oxygen as needed. He had a home oxygen walk test on the day of discharge and will require home oxygen. Case management assisted with arranging home oxygen. He received incentive spirometry. We encouraged ambulation. He received IV Levaquin, which will be changed to PO upon discharge. He will follow up with pulmonology as an outpt. Pt Condition on Discharge: Stable Discharge Disposition: Discharge Home Discharge Time: > 30 minutes Discharge Instructions DIET: Follow Instructions for: Heart Healthy Diet Activities you can perform: Weight Bearing as [place] Follow up Referrals: PCP Follow-up - 1 Week Pulmonology - 1 Week with Gregg Lee MD New Medications: Levofloxacin (Levaquin) 750 Mg Tablet 750 MG PO DAILY for Infection, #5 TAB 0 Refills Oxygen (O2) (Oxygen (O2)) Device LITER JITENDRA.CANULA CONTINUOUS for Prevent Hypoxemia, #2 Oxygen Concentrator Portable Gaseous 2 L/min via Nasal Canula Continuous For 99 months Prednisone (48) 10 mg tab Dose Pack (Prednisone (48) 10 mg tab Dose Pack) 10 Mg Dspk 10 MG PO DIRECTED for Inflammation, #1 DSPK 0 Refills Budesonide-Formoterol Inh (Symbicort Inh) 160-4.5 Mcg/Act Aero 2 PUFF INH Q12HR for Breathing Treatment, #1 INHALER Continued Medications: Albuterol 8.5 GM Inh (Proair Hfa 8.5 GM Inh) 90 Mcg/Act Aer 1 PUFF INH Q4H PRN for SHORTNESS OF BREATH, #1 INHALER 0 Refills 108 mcg/actuation Alfuzosin ER 24 HR (Alfuzosin ER 24 HR) 10 Mg Tab 10 MG PO DAILY for BPH, #30 TAB 0 Refills Aspirin (Aspirin) 81 Mg Chew 81 MG CHEW DAILY, TAB 0 Refills Buprenorphine-Naloxone Sublingual Film (Suboxone Sublingual Film) 8-2 Mg Film 1.5 FILM SL, FILM Unique ID number required: Lisinopril (Lisinopril) 5 Mg Tab 5 MG PO DAILY for Blood Pressure Management, #30 TAB 0 Refills Metoprolol Succinate ER 24 HR (Metoprolol Succinate ER 24 HR) 200 Mg Tab 200 MG PO DAILY, #30 TAB 0 Refills Nitroglycerin SL (Nitroglycerin SL) 0.4 Mg Subl 0.4 MG SL DIRECTED PRN for CHEST PAIN, #100 TAB.SL 0 Refills ONE TABLET UNDER THE TONGUE NEEDED FOR CHEST PAIN, MAY REPEAT EVERY FIVE MINUTES FOR A TOTAL OF 3 DOSES OR CALL 911 IF NO RELIEF Omeprazole (Omeprazole) 20 Mg Tab 20 MG PO DAILY, #30 TAB 0 Refills Simvastatin (Simvastatin) 20 Mg Tab 20 MG PO DAILY for Cholesterol Management, #30 TAB 0 Refills Maximilian Abreu DO May 19, 2017 13:29
--- NOTE | 2017-05-19 17:24 | HHI.PR ---
Subjective Remarks 72 YOWM with COPD exac, Bronchitis,Nicotine use Weaned to NC Cough with small amount of sp no Fever desaturates on ambulation Objective Vital Signs Vital Signs Date Time Temp Pulse Resp B/P (MAP) Pulse Ox O2 Delivery O2 Flow Rate FiO2 05/19/17 17:01 68 27 149/76 (100) 94 05/19/17 16:00 70 05/19/17 16:00 98.8 70 28 94 05/19/17 15:01 68 38 159/88 (111) 93 05/19/17 15:00 68 25 94 05/19/17 14:31 2.00 05/19/17 14:29 84 25 162/80 (107) 92 05/19/17 14:00 68 05/19/17 13:01 70 34 138/83 (101) 93 05/19/17 13:00 72 32 93 05/19/17 12:00 72 05/19/17 12:00 72 36 93 05/19/17 10:01 80 21 135/73 (93) 91 05/19/17 10:00 82 05/19/17 09:01 72 29 126/68 (87) 93 05/19/17 08:01 97.5 70 23 136/80 (98) 92 05/19/17 08:00 69 05/19/17 07:31 92 Nasal Cannula 2.00 05/19/17 07:01 70 28 158/83 (108) 97 05/19/17 07:00 Nasal Cannula 2.00 05/19/17 06:04 76 24 155/76 (102) 95 05/19/17 06:00 76 05/19/17 06:00 82 Nasal Cannula 5.00 05/19/17 05:01 68 14 154/79 (104) 92 05/19/17 04:01 97.7 68 11 153/83 (106) 90 05/19/17 04:00 68 05/19/17 03:01 68 10 150/82 (104) 92 05/19/17 02:01 70 11 158/89 (112) 94 05/19/17 02:00 70 05/19/17 01:01 78 21 162/80 (107) 98 05/19/17 01:00 97 Nasal Cannula 2.00 Humidified 05/19/17 00:26 97 Nasal Cannula 4.00 05/19/17 00:01 98.0 68 16 156/85 (108) 95 05/19/17 00:00 97 Nasal Cannula 4.00 05/19/17 00:00 70 05/18/17 23:01 68 18 144/77 (99) 94 05/18/17 22:01 68 20 142/78 (99) 94 05/18/17 22:00 68 05/18/17 22:00 95 Venturi Mask 7.00 40 05/18/17 21:20 90 Venturi Mask 7.00 50 05/18/17 21:01 68 18 127/70 (89) 96 05/18/17 20:45 92 Venturi Mask 50 05/18/17 20:44 81 Nasal Cannula 6.00 05/18/17 20:01 68 30 133/68 (89) 96 05/18/17 20:00 70 05/18/17 20:00 95 Nasal Cannula 6.00 Humidified 05/18/17 19:33 95 Nasal Cannula 6.00 05/18/17 19:01 99.2 86 34 169/81 (110) 91 05/18/17 18:00 78 05/18/17 18:00 78 35 137/70 (92) 94 I/O 05/18/17 05/18/17 05/18/17 05/19/17 05/19/17 05/19/17 07:00 15:00 23:00 07:00 15:00 23:00 Intake Total 760 ml 480 ml 600 ml Output Total 400 ml 950 ml Balance 760 ml 80 ml -350 ml Intake Oral 620 ml 480 ml 600 ml IV Total 140 ml Output Urine Total 400 ml 950 ml # Voids 2 # Bowel Movements 0 0 Result Diagram: 05/18/17 0535 05/18/17 0535 Objective Remarks GENERAL:MBMN WM mild sob SKIN: Warm and dry. HEAD: Normocephalic. EYES: No scleral icterus. No injection or drainage. NECK: Supple, trachea midline. No JVD or lymphadenopathy. CARDIOVASCULAR: Regular rate and rhythm without murmurs, gallops, or rubs. RESPIRATORY: Breath sounds equal bilaterally. No accessory muscle use. GASTROINTESTINAL: Abdomen soft, non-tender, nondistended. MUSCULOSKELETAL: No cyanosis, or edema. BACK: Nontender without obvious deformity. No CVA tenderness. A/P Assessment and Plan COPD Exac Bronchitis HTN Nicotine use CAD, s/p stent S/P Pacemaker PLAN: Aerosol nebs Supplement 02 with NC PO steroids cont Levaquin SQ Heparin Smoking cessation. DC plans for home with Gregg Lee MD May 19, 2017 17:24
[2017-05-19] MEDS ORDERED: [UNRECOGNIZED DRUG - OTHER] SL ONE (18:00)
[2017-05-19] MEDS ORDERED: methylPREDNISolone SOD SUCC 125 MG/2 ML VIAL IV SCH (21:00)
== END 2017-05-19 19:00 | disposition home or self-care (01) | DRG 190 ==
LOC: PHED 03:33 → PHEDA 05:33 → PH3B 06:39 → PHICU 05-18 08:50
PROVIDERS: ADMIT Hospitalist; ATTEND Hospitalist
DX: J44.1 Chronic obstructive pulmonary disease with (acute) exacerbation (principal); J96.92 Respiratory failure, unspecified with hypercapnia; I10 Essential (primary) hypertension; F17.290 Nicotine dependence, other tobacco product, uncomplicated; B35.1 Tinea unguium; G89.29 Other chronic pain; R09.02 Hypoxemia; R60.9 Edema, unspecified; I25.10 Atherosclerotic heart disease of native coronary artery without angina pectoris; Z95.0 Presence of cardiac pacemaker; Z95.5 Presence of coronary angioplasty implant and graft; Z23 Encounter for immunization
CPT/HCPCS: 36600; 71010; 71020; 80048; 80053; 82550; 82805; 82948; 83605; 83880; 84484; 85025; 87641; 87804; 90471; 90686; 93005; 93306; 93971; 94620; 94640; 94664; 96374; G0008; J1644; J1956; J2920; J2930; Q2038